=== PATIENT | male | born 2000 | race Caucasian/White ===

== ENCOUNTER 2020-05-21 15:21 | Emergency (ER) | payer OTHER ==
[~2020-05-21] VITALS: Ht 182.9 cm; Wt 81.6 kg
[2020-05-21 15:27] VITALS: BP 139/85
--- NOTE | 2020-05-21 15:30 | NUR ---
pt ambulate to bed 7 with steady gait.
--- NOTE | 2020-05-21 15:45 | NUR ---
pt c/o anxiety from home . denies any pain , afibrile , ambulatory with steady gait. pmhx anxiety
--- NOTE | 2020-05-21 15:50 | NUR ---
ifeanyi stack at bedside evaluating pt.
[2020-05-21 16:16] VITALS: BP 139/85
--- NOTE | 2020-05-21 16:17 | NUR ---
Patient discharged with v/s stable. Written and verbal after care instructions given and explained regarding anxiety. Patient alert, oriented and verbalized understanding of instructions. Ambulatory with steady gait. All questions addressed prior to discharge. ID band removed. Patient advised to follow up with PMD. Rx of hydroxyzine given. Patient educated on indication of medication including possible reaction and side effects. Opportunity to ask questions provided and answered.
== END 2020-05-21 16:17 | disposition home or self-care (01) ==
LOC: EEVIPCON 15:21 → MED 15:21
DX: F41.9 Anxiety disorder, unspecified (principal); F32.9 Major depressive disorder, single episode, unspecified
CPT/HCPCS: 99283

== ENCOUNTER 2022-04-24 03:15 | Emergency (ER) | payer OTHER ==
[~2022-04-24] VITALS: Ht 182.9 cm; Wt 99.8 kg
--- NOTE | 2022-04-24 03:17 | NUR ---
SEEN BY ERMD NO NURSING INTERVENTIONS NEEDED. PATIENT DISCHARGED BY ER MD.
[2022-04-24 03:20] VITALS: BP 157/95
== END 2022-04-24 03:17 ==
LOC: MED 03:15
DX: Z02.89 Encounter for other administrative examinations (principal); V89.2XXA Person injured in unspecified motor-vehicle accident, traffic, initial encounter; Y93.89 Activity, other specified; Y92.410 Unspecified street and highway as the place of occurrence of the external cause; Y99.8 Other external cause status
CPT/HCPCS: 99283

== ENCOUNTER 2023-11-25 11:38 | Emergency (ER) | payer OTHER ==
[~2023-11-25] VITALS: Ht 182.9 cm; Wt 99.8 kg
[2023-11-25 12:04] VITALS: BP 127/85; PULSE 85; RESP 16; TEMP 97.4; O2SAT 97
[2023-11-25 13:18] LABS: ANION GAP 15.5 (8-16); CALCIUM 9.2 mg/dL (8.5-10.1); CARBON DIOXIDE 24.2 mmol/L (21-32); CREATININE 0.9 mg/dL (0.6-1.3); POTASSIUM 3.7 mmol/L (3.5-5.1)
[2023-11-25 13:20] LABS: APPEARANCE,URINE CLEAR (CLEAR); BILIRUBIN,URINE NEGATIVE (NEGATIVE); BLOOD, URINE NEGATIVE (NEGATIVE); COLOR,URINE YELLOW (YELLOW); LEUKOCYTE ESTERASE ,URINE NEGATIVE (NEGATIVE); NITRITE, URINE NEGATIVE (NEGATIVE); PH,URINE 6.5 (5.0-9.0); PROTEIN,URINE 2+ (NEGATIVE); UGLUCOSE NEGATIVE (NEGATIVE); UROBILINOGEN,URINE 0.2 EU/dL (0.2 - 1)
[2023-11-25 13:21] LABS: AMPHETAMINE, URINE NEGATIVE ng/ml (NEG <=1000); BARBITURATE, URINE NEGATIVE ng/ml (NEG <=200); BENZODIAZEPINE, URINE NEGATIVE ng/mL (NEG <=200); CANNABINOID, URINE POSITIVE ng/mL (NEG <=50); COCAINE, URINE NEGATIVE ng/mL (NEG <=300); OPIATE, URINE NEGATIVE ng/mL (NEG <=2000); PHENCYCLIDINE SCREEN,URINE NEGATIVE ng/mL (NEG <=25)
[2023-11-25 13:23] LABS: ALCOHOL, BLOOD < 3 mg/dL (<10)
[2023-11-25 13:31] LABS: ACETAMINOPHEN < 0.5 ug/ml (10-30); SALICYLATE < 2.8 mg/dL (2.8-20.0)
[2023-11-25 13:44] LABS: BACTERIA,URINE None Seen /HPF (None Seen); MUCUS,URINE 1+ /LPF (None Seen); RBC,URINE 0-5 /HPF (0-5); SQUAMOUS EPITHELIAL CELL,UR 4-10 (MOD) /LPF (0-3 (FEW)); TRICHOMONAS,URINE None Seen /HPF (None Seen); WBC,URINE 0-5 /HPF (0-5); YEAST,URINE None Seen /HPF (None Seen)
[2023-11-25 14:00] LABS: BASOPHILS % (AUTO) 0.4 % (0.0-2.0); EOSINOPHILS # (AUTO) 0.1 K/uL (0-0.4); EOSINOPHILS % (AUTO) 1.5 % (0.0-4.0); HEMATOCRIT 45.3 % (36-52); HEMOGLOBIN 16.3 g/dL (12.0-18.0); LYMPHOCYTES # (AUTO) 1.8 K/uL (2.0-11.5); LYMPHOCYTES % (AUTO) 38.4 % (20.5-51.1); MEAN CORPUSCULAR HEMOGLOBIN 31 pg (27-31); MEAN CORPUSCULAR HGB CONC 36 g/dL (33-37); MEAN CORPUSCULAR VOLUME 86.9 fL (80-94); MONOCYTES # (AUTO) 0.4 K/uL (0.8-1.0); MONOCYTES % (AUTO) 9.2 % (1.7-9.3); NEUTROPHILS # (AUTO) 2.3 K/uL (1.8-7.7); NEUTROPHILS % (AUTO) 50.5 % (42.2-75.2); PLATELET COUNT (AUTO) 221 K/uL (140-450); RED BLOOD CELL COUNT(AUTO) 5.21 MIL/uL (4.20-6.10); WHITE BLOOD COUNT (AUTO) 4.6 K/uL (4.8-10.8)
[2023-11-25] MEDS ORDERED: ESCI10TA PO (15:36)
[2023-11-25 15:50] VITALS: BP 124/83; PULSE 82; RESP 17; TEMP 98.1; O2SAT 98
== END 2023-11-25 15:51 | disposition home or self-care (01) ==
LOC: MED 11:38
DX: R45.851 Suicidal ideations (principal); F41.9 Anxiety disorder, unspecified; Z20.822 Contact with and (suspected) exposure to COVID-19; F32.9 Major depressive disorder, single episode, unspecified
CPT/HCPCS: 36415; 80048; 80305; 81001; 85025; 87426; 99285; G0480; G0482